=== PATIENT | female | born 1990 | race Caucasian/White ===

== ENCOUNTER 2019-07-01 11:04 | Emergency (ER) | payer OTHER ==
[~2019-07-01] VITALS: Ht 152.4 cm; Wt 48.5 kg
[~2019-07-01 11:04] MED LIST: FIORICET 50-301 EACH PO; FLINTSTONES COM18 MG PO; FLINTSTONES1 EAC1 PO; MOTRIN600 MG PO; PROCARDIA XL30 MG PO; TYLENOL325 MG PO
[2019-07-01] MEDS ORDERED: LABETALOL HCL100 MG PO (12:00)
== END 2019-07-01 12:10 | disposition home or self-care (01) ==
LOC: ED 11:04
DX: O16.1 Unspecified maternal hypertension, first trimester (principal); Z3A.01 Less than 8 weeks gestation of pregnancy; O99.331 Smoking (tobacco) complicating pregnancy, first trimester; F17.200 Nicotine dependence, unspecified, uncomplicated; Z88.2 Allergy status to sulfonamides; Z88.1 Allergy status to other antibiotic agents; Z88.8 Allergy status to other drugs, medicaments and biological substances
CPT/HCPCS: 36415; 80053; 85025; 86762; 86780; 86850; 86900; 86901; 87340; 99282

== ENCOUNTER 2019-08-26 15:56 | Emergency (ER) | payer OTHER ==
[~2019-08-26] VITALS: Ht 152.4 cm; Wt 51.0 kg
--- OUTSIDE RECORDS SUMMARY | ~2019-08-26 | XMS | Clinical Summary ---
Demographics + + + | Address | [address] | | | [place] [address] | + + + | Home Phone | | + + + | Preferred Language | Unknown | + + + | Marital Status | Legally | + + + | Confucianism Affiliation | Unknown | + + + | Race | Unknown | + + + | Ethnic Group | Unknown | + + + Author + + + | Author | [facility] | | | and [place] | + + + | Organization | [facility] | | | and [place] | + + + | Address | Unknown | + + + | Phone | Unavailable | + + + Support + + +---------+ + | Name | Relationship | Address | Phone | + + +---------+ + | Irene Chavez | ECON | Unknown | | + + +---------+ + Care Team Providers + +------+ + | Care Coiler Name | Role | Phone | + +------+ + | Jenise Fermin CHANNELER | PCP | Unavailable | + +------+ + Allergies No Known Allergies Medications + + + +---------+------+------+-------+ | Medication | Sig | Dispensed | Refills | Star | End | Statu | | | | | | t | Date | s | | | | | | Date | | | + + + +---------+------+------+-------+ | sertraline | Take 50 mg by mouth | | 0 | | | Activ | | (ZOLOFT) 50 mg | Daily. | | | | | e | | tablet | | | | | | | + + + +---------+------+------+-------+ | acetaminophen | Take 325 mg by mouth | | 0 | | | Activ | | (TYLENOL) 325 mg | every 6 hours as | | | | | e | | tablet | needed. | | | | | | + + + +---------+------+------+-------+ | metoprolol | Take 25 mg by mouth | | 0 | | | Activ | | succinate | Daily. | | | | | e | | (TOPROL-XL) 25 mg 24 | | | | | | | | hr tablet | | | | | | | + + + +---------+------+------+-------+ | | Take 1 tablet by | | 0 | | | Activ | | multivitamin tablet | mouth Daily. | | | | | e | + + + +---------+------+------+-------+ | promethazine | Take 25 mg by mouth | | 0 | | | Activ | | (PHENERGAN) 25 mg | every 6 hours as | | | | | e | | tablet | needed. | | | | | | + + + +---------+------+------+-------+ | dicyclomine | Take 20 mg by mouth | | 0 | | | Activ | | (BENTYL) 20 MG | every 6 hours. | | | | | e | | tablet | | | | | | | + + + +---------+------+------+-------+ | | Take 1 tablet by | | 0 | | | Activ | | HYDROcodone-acetamin | mouth every 6 hours | | | | | e | | ophen (NORCO) 5-325 | as needed. | | | | | | | mg per tablet | | | | | | | + + + +---------+------+------+-------+ Active Problems + + + | Problem | Noted Date | + + + | HTN (hypertension) | | + + + | Seizures | | + + + | Depression | | + + + | Headache | | + + + | Abnormal Pap smear | | + + + Family History + +------+--------+ + | Relation | Name | Status | Comments | + +------+--------+ + | Father | | Alive | | + +------+--------+ + | Mother | | Alive | | + +------+--------+ + Social History + +-------+ +--------+------+ | Tobacco Use | Types | Packs/Day | Years | Date | | | | | Used | | + +-------+ +--------+------+ | Current Every Day | | 0.3 | | | | Smoker | | | | | + +-------+ +--------+------+ + +---+---+---+ | Smokeless Tobacco: | | | | | Never Used | | | | + +---+---+---+ + + +---------+ + | Alcohol Use | Drinks/We | oz/Week | Comments | | | ek | | | + + +---------+ + | No | | | | + + +---------+ + + + + | Sex Assigned at | Date Recorded | | | | + + + | Not on file | | + + + + + + + | Job Start Date | Occupation | Industry | + + + + | Not on file | Not on file | Not on file | + + + + + + + + | Travel History | Travel Start | Travel End | + + + + + + | No recent travel history available. | + + Last Filed Vital Signs + + + + | Vital Sign | Reading | Time Taken | + + + + | Blood Pressure | 130/90 | 07/29/2014 1429 PDT | + + + + | Pulse | 70 | 07/29/20141428 PDT | + + + + | Temperature | 36.4 C (97.6 F) | 07/29/20141428 PDT | + + + + | Respiratory Rate | 16 | 07/29/20141428 PDT | + + + + | Oxygen Saturation | 99% | 04/30/2014909 PDT | + + + + | Inhaled Oxygen | - | - | | Concentration | | | + + + + | Weight | 54.4 kg (120 lb) | 07/29/20141428 PDT | + + + + | Height | 154.9 cm (5' 1") | 07/29/20141428 PDT | + + + + | Body Mass Index | 22.67 | 07/29/20141428 PDT | + + + + Plan of Treatment + + + + + | Health Maintenance | Due Date | Last Done | Comments | + + + + + | Vaccine: | | | | | Dtap/Tdap/Td (1 - | 0 | | | | Tdap) | | | | + + + + + | Cervical Cancer | | | | | Screening (Pap) | 2 | | | + + + + + | Vaccine: Influenza | | | | | (#1) | 9 | | | + + + + + Results Not on filefrom Last 3 Months Advance Directives Patient has advance care planning documents on file. For more information, please contact:[facility] [place] [address]
--- OUTSIDE RECORDS SUMMARY | ~2019-08-26 | XMS | Clinical Summary ---
Demographics + + + | Address | [address] | | | [place] [address] | + + + | Home Phone | | + + + | Preferred Language | Unknown | + + + | Marital Status | Legally | + + + | Baptist Affiliation | Unknown | + + + | Race | Unknown | + + + | Ethnic Group | Unknown | + + + Author + + + | Author | [facility] | | | and [place] | + + + | Organization | [facility] | | | and [...] Team Providers + +------+ + | Care Gasket Notcher Name | Role | Phone | + +------+ + | Jenise Fermin GRANITE SANDBLASTER APPRENTICE | PCP | Unavailable | + +------+ [...] documents on file. For more information, please contact:[facility] [place] [address]
--- OUTSIDE RECORDS SUMMARY | ~2019-08-26 | XMS | Clinical Summary ---
Demographics + + + | Address | [address] | | | [place] [address] | + + + | Home Phone | | + + + | Preferred Language | Unknown | + + + | Marital Status | Single | + + + | Restorationism Affiliation | Unknown | + + + | Race | Unknown | + + + | Ethnic Group | Unknown | + + + Author + + + | Author | [facility] (Historical as of | | | 06-20-19) | + + + | Organization | [facility] (Historical as of | | | 06-20-19) | + + + | Address | Unknown | + + + | Phone | Unavailable | + + + Support + + + + + | Name | Relationship | Address | Phone | + + + + + | Irene Maravilla | ECON | [address] | | | | | [place] | | | | | [address] | | + + + + + Care Team Providers + +------+ + | Care Ship'S Electronic Warfare Officer Name | Role | Phone | + +------+ + | Dr. Brian | PP | Unavailable | + +------+ + Allergies Not on File Current Medications Not on file Active Problems Not on file Social History + +-------+ +--------+------+ | Tobacco Use | Types | Packs/Day | Years | Date | | | | | Used | | + +-------+ +--------+------+ | Never Assessed | | | | | + +-------+ +--------+------+ + + + | Sex Assigned at | Date Recorded | | | | + + + | Not on file | | + + + Plan of Treatment Not on file Results Not on filefrom Last 3 Months"
--- OUTSIDE RECORDS SUMMARY | ~2019-08-26 | XMS | Clinical Summary ---
Demographics + + + | Address | [address] | | | [place] [address] | + + + | Home Phone | | + + + | Preferred Language | Unknown | + + + | Marital Status | Single | + + + | Zoroastrianism Affiliation | Unknown | + + + | Race | Unknown | + + + | Ethnic Group | Unknown | + + + Author + + + | Author | [facility] (Historical as of | | | 06-20-19) | + + + | Organization | [facility] (Historical as of | | | 06-20-19) [...] [place] | | | | | [address] | | + + + + + Care Team Providers + +------+ + | Care Classified Ad Clerk Name | Role | Phone | + [...]
[~2019-08-26 15:56] MED LIST changes: +LABETALOL HCL100 MG PO
== END 2019-08-26 18:54 | disposition home or self-care (01) ==
LOC: ED 15:56
DX: O20.9 Hemorrhage in early pregnancy, unspecified (principal); Z3A.13 13 weeks gestation of pregnancy; Z87.891 Personal history of nicotine dependence; Z88.2 Allergy status to sulfonamides; Z88.8 Allergy status to other drugs, medicaments and biological substances; Z88.1 Allergy status to other antibiotic agents; Z79.899 Other long term (current) drug therapy
CPT/HCPCS: 76801; 80048; 81001; 84702; 85025; 86900; 86901; 99284-25

== ENCOUNTER 2020-02-12 07:45 | Inpatient (IN) | payer OTHER ==
--- NOTE | 2020-02-12 14:30 | PR ---
[facility] [address] [facility] [place], [place] [address] Signed Progress Notes IP Datetime Report Generated by CPJovani: 02/12/2020 14:30 PROGRESS NOTES: [id number] Impression: Normal progression of labor Procedures: Artificial ROM Plan: Continue present management; Anticipate Vaginal Delivery VITAL SIGNS: [id number] Vital Signs: Reviewed; Within Normal Limits EXAM: [id number] Dilatation: 2.0 Effacement: 90 Station: -2 Uterine Contractions: every 2-3 minutes MEMBRANES: [id number] Membrane Status: Ruptured Amniotic Fluid Color: Clear ROM Note: AROM with large amount clear fluid Comments: Increased variability with acceleration during examination, attempted FEKG, but unable to attach and patient very uncomfortable, so will continue monitoring with external, will add later if needed Fetus A: [id number] FHR Baseline: 130 Variability: Moderate 6-25bpm Accelerations: 15X15 FHR Category: Category II Presentation: Vertex Fetus B: [id number] Signing Physician: Aditya Dao MD Copies: ~ *Electronically Signed* 02/12/20 1430 ADITYA DAO MD PATIENT NAME: IJEOMALANGHEAVEN PROGRESS NOTE DATE OF : 89 PHYSICIAN: ADITYA DAO MD RPT #: [id number] REPORT IS CONFIDENTIAL AND NOT TO BE RELEASED WITHOUT AUTHORIZATION
--- NOTE | 2020-02-12 17:02 | PR ---
[facility] [address] [facility] [place], [place] [address] Signed Progress Notes IP Datetime Report Generated by CPN: 02/12/2020 17:02 PROGRESS NOTES: [id number] Impression: Slow Progression of Labor Procedures: Scalp Electrode; Epidural Placement Plan: Anticipate Vaginal Delivery VITAL SIGNS: [id number] Vital Signs: Reviewed VS Notable Details: elevated BP EXAM: [id number] Dilatation: 3.0 Effacement: 90 Station: -1 Uterine Contractions: every 2-3 minutes MEMBRANES: [id number] Membrane Status: Ruptured Amniotic Fluid Color: Clear ROM Note: AROM with large amount clear fluid Comments: BP going up, given IV Labetalol x2. Anesthesia here for Epidural now. Will recheck cs and BP after Epidural palcement Fetus A: [id number] FHR Baseline: 130 Variability: Moderate 6-25bpm Accelerations: 15X15 Decelerations: Variable FHR Category: Category II Presentation: Vertex Fetus B: [id number] Signing Physician: Lucas Dao MD Copies: ~ *Electronically Signed* 02/12/20 1702 LUCAS DAO MD PATIENT NAME: HEAVEN REYNA PROGRESS NOTE DATE OF : [birth year] PHYSICIAN: LUCAS DAO MD RPT #: [id number] REPORT IS CONFIDENTIAL AND NOT TO BE RELEASED WITHOUT AUTHORIZATION
--- NOTE | 2020-02-12 18:19 | PR ---
[facility] [address] [place], [place] [address] Signed Progress Notes IP Datetime Report Generated by OK: 02/12/2020 18:19 PROGRESS NOTES: [id number] Impression: Non-reassuring heart rate; Slow Progression of Labor Procedures: Scalp Electrode; Epidural Placement Plan: Deliver- Section Informed Consent Obtain: Section Delivery VITAL SIGNS: [id number] Vital Signs: Reviewed VS Notable Details: elevated BP EXAM: [id number] Dilatation: 3.0 Effacement: 90 Station: -2 Uterine Contractions: every 2-3 minutes MEMBRANES: [id number] Membrane Status: Ruptured Amniotic Fluid Color: Clear ROM Note: AROM with large amount clear fluid Comments: No change for 3.5 hours, continued variable decels, occasional decreased variability. Have tried left side, right side, hands-knees, high Fallors, fluid resuscitation, without improvement. Discussed risks of continuing prfegnancy vs C/S. Discussed C/S; procedure, risks of infection, bleeding, bowel/bladder/ureter, uterine injury, scar tissue post-op, risk of repeat C/S if another . Questiosn answered. Patient agrees to C/S. OR _ Anesthesia called - on way here Fetus A: [id number] FHR Baseline: 130 Variability: Moderate 6-25bpm Accelerations: 15X15 Decelerations: Variable FHR Category: Category II Presentation: Vertex Comments on Fetus A: some decreased variability, rare accelerations Fetus B: [id number] Signing Physician: Aditya Dao MD Copies: *Electronically Signed* 02/12/201818 ADITYA DAO MD PATIENT NAME: HEAVEN REYNA PROGRESS NOTE DATE OF : [birth year] PHYSICIAN: ADITYA DAO MD RPT #: [id number] REPORT IS CONFIDENTIAL AND NOT TO BE RELEASED WITHOUT AUTHORIZATION [address] [place], [place] [address] Signed ~ *Electronically Signed* 02/12/201818 ADITYA DAO MD PATIENT NAME: HEAVEN REYNA PROGRESS NOTE DATE OF : [birth year] PHYSICIAN: ADITYA DAO MD RPT #: [id number] REPORT IS CONFIDENTIAL AND NOT TO BE RELEASED WITHOUT AUTHORIZATION
--- NOTE | 2020-02-12 20:10 | NUR ---
02/12/202009 Love Georges6 PT ARRIVED TO ROOM, VSS. AT BEDSIDE. PT DENIES PAIN AND NAUSEA. 2009 PT EATNG ICE CHIPS PER REQUEST.
--- NOTE | 2020-02-13 09:12 | PR ---
[facility] [address] [facility] [place] [address] Signed PP Progress Notes Datetime Report Generated by CPN: 02/13/2020 09:12 SUBJECTIVE: [id number] Pain: Within normal limits Nausea/Vomiting: Denies Vital Signs: [id number] Vital Signs: Reviewed; Within Normal Limits Notable Details: PP Hgb/Hct = 11.9/36.4 EXAM: [id number] Abdomen/Uterus: Normal Lochia: Normal Extremities: Normal Incision: Normal IMPRESSION/PLAN/PROCEDURES: [id number] Impression: Normal progression Other Impression: Chronic HTN Plan: Continue present management Procedures: None Progress Notes: Doing well, without complaint. Will continue with Labetalol, watch BP Signing Physician: Lucas Dao MD Copies: ~ *Electronically Signed* 02/13/20911 LUCAS DAO MD PATIENT NAME: HEAVEN REYNA PROGRESS NOTE DATE OF : [birth year] PHYSICIAN: LUCAS DAO MD RPT #: [id number] REPORT IS CONFIDENTIAL AND NOT TO BE RELEASED WITHOUT AUTHORIZATION
--- NOTE | 2020-02-13 10:12 | OR ---
[facility] [address] [place], [place] [address] Signed DATE OF OPERATION: 02/12/2020 SURGEON: Aditya Graham MD Patient of Dr. Graham. PREOPERATIVE DIAGNOSES: Nonreassuring heart rate tracing, failure to progress, and chronic hypertension. POSTOPERATIVE DIAGNOSES: Nonreassuring heart rate tracing, failure to progress, and chronic hypertension. PROCEDURE: Primary low transverse segment section, delivery of a live male . ANESTHESIA: Epidural. ESTIMATED BLOOD LOSS: 500 mL. COMPLICATIONS: None. DRAINS: Galvin to bladder. FINDINGS: Live male in LOP presentation with the head tightly wedged in the pelvis at 3 cm. Normal uterus. Normal tubes and ovaries bilaterally. DESCRIPTION OF PROCEDURE: The patient was brought into the operating room, placed in supine position. After adequate epidural anesthesia was obtained, was prepped and draped in usual sterile fashion. The patient already had Galvin catheter in place. A Pfannenstiel skin incision was made with a scalpel and extended through subcutaneous tissue with Bovie. The fascia was nicked with scalpel and extended in transverse fashion using curved scissors. The underlying abdominal musculature was bluntly and sharply from the fascia above and below the incision. The abdominal musculature was bluntly and sharply along the midline. The peritoneum was grasped with hemostats, elevated, nicked with Electronically Signed By: ADITYA GRAHAM MD 02/13/20 1012 PATIENT NAME: HEAVEN REYNA LABREE OPERATIVE REPORT DATE OF : [birth year] REPORT #: [id number] PHYSICIAN: ADITYA GRAHAM MD PCP: ADITYA GRAHAM MD REPORT IS CONFIDENTIAL AND NOT TO BE RELEASED WITHOUT AUTHORIZATION [facility] [address] [place], [place] [address] Signed scissors, and extended in vertical fashion using scissors and blunt dissection. The Morris self-retaining retractor was inserted into the incision and tightened in place. The lower uterine segment was identified. The bladder was noted to be well below the area of dissection. The lower uterine segment was then carefully nicked with scalpel and extended in transverse fashion using finger dissection. A bulging bag of clear fluid came from the incision, that ruptured during finger dissection. The infant was noted to be in the vertex LOP presentation with the head tightly wedged in the pelvis. Attempt was made to lift the head out of the pelvis, but was very tightly in and could not be moved. With the incision opened, a shoulder, arm, and the umbilical cord came out of the incision. Attempt was made to put the arm back in and to J the incision, but the incision was already to the edge of the uterus and the upper portion of the uterus was difficult to see because of the Morris retractor. At this point, it was decided to do manual breech extraction, so a hand was placed in the fundus and 1 foot seen and the leg delivered to the incision. With this leg removed, the infant was slowly rotated to bring the other leg anterior and then with both feet, legs out of the incision, the buttocks were delivered. At this point, the was rotated with the back down and flexed the infant, brought to the buttocks and back anterior, and the infant was delivered caudally rotating the head out of the pelvis, both arms and the head then easily delivered. The cord was doubly clamped and cut and the passed off the table in stable condition to awaiting nurse. Cord gases were obtained. The placenta was easily removed and uterine cavity explored with a lap pad to remove any retained membranes. The incision was examined and noted to extend the whole length of the lower segment. An angle stitch of 0 Monocryl was placed at one end of the incision and running locking stitch of 0 Monocryl starting at the other end used to close the incision. A second running stitch of 0 Monocryl was used to imbricate the first layer. There was small amount of bleeding on the left side. This was controlled with ajdulv-lc-mekmt stitch of 0 Monocryl. There was a slight tear in the midportion of the lower segment, approximately 3 cm long. This was in a vertical fashion. This was closed using running locking stitch of 0 Vicryl suture. The entire pelvis was irrigated, suctioned, and examined. The extension on the left side went towards the round ligament and there was slight bleeding, so fingers were placed behind the broad ligament and 2 tjpohq-ce-zgylr stitches of 0 Vicryl were placed lateral in this area and tied in place. The hand was kept behind there to make sure that the stitch did not go through the back of the broad ligament. After these 2 stitches were tied, good hemostasis was noted. The lower segment was rather raw, but no active bleeding was seen. At this point, the entire pelvis was re-irrigated, suctioned, and examined and appeared to have good hemostasis. Because of the large raw area in the lower segment, after removing the Morris self-retaining retractor, Jose Antonio was sprinkled over the entire area and good hemostasis was noted. A sheet of ACell was then placed over lower uterine segment to help with healing. Then, the anterior wall peritoneum was closed using running stitch of 2-0 Vicryl suture. The abdominal musculature was reapproximated using interrupted stitches of 0 Vicryl suture. The abdominal wall incision was irrigated, Electronically Signed By: ADITYA GRAHAM MD 02/13/20 1012 PATIENT NAME: HEAVEN REYNA OPERATIVE REPORT DATE OF : [birth year] REPORT #: [id number] PHYSICIAN: ADITYA GRAHAM MD PCP: ADITYA GRAHAM MD REPORT IS CONFIDENTIAL AND NOT TO BE RELEASED WITHOUT AUTHORIZATION [facility] [address] [place], [place] [address] Signed suctioned, examined, any bleeding spots were cauterized with the Bovie. Remaining Jose Antonio was sprinkled over the abdominal musculature in the lower segment to further help with healing and then powdered ACell sprinkled over the anterior musculature to help with healing. The fascia was then closed using 2 running stitch of 0 Vicryl suture meeting in the midline. Subcutaneous tissue was irrigated, suctioned, examined, any bleeding spots cauterized with the Bovie. The subcutaneous tissue was then closed using interrupted stitches of 3-0 Vicryl sutures. Skin was reapproximated using skin clips. The patient tolerated the procedure well, went to recovery room in good condition. The sponge, needle, and instrument counts were correct at the end of the procedure. Aditya Graham MD MJB/MODL /[id number] Copies: ~ Electronically Signed By: ADITYA GRAHAM MD 04/11/20 1012 PATIENT NAME: AXELHEAVEN OPERATIVE REPORT DATE OF : [birth year] REPORT #: [id number] PHYSICIAN: ADITYA GRAHAM MD PCP: ADITYA GRAHAM MD REPORT IS CONFIDENTIAL AND NOT TO BE RELEASED WITHOUT AUTHORIZATION
--- NOTE | 2020-02-14 11:12 | PR ---
[facility] [address] [facility] [place] [address] Signed PP Progress Notes Datetime Report Generated by CPN: 02/14/2020 11:11 SUBJECTIVE: [id number] Pain: Within normal limits Nausea/Vomiting: Denies Vital Signs: [id number] Vital Signs: Reviewed; Within Normal Limits Notable Details: PP Hgb/Hct = 11.9/36.4 EXAM: [id number] Abdomen/Uterus: Normal Lochia: Normal Extremities: Normal Incision: Normal IMPRESSION/PLAN/PROCEDURES: [id number] Impression: Normal progression Other Impression: Chronic HTN Plan: Discharge Procedures: None Progress Notes: Doing well, without complaint, ready to go home. Signing Physician: Lucas Dao MD Copies: ~ *Electronically Signed* 02/14/20 1111 LUCAS DAO MD PATIENT NAME: HEAVEN REYNA PROGRESS NOTE DATE OF : [birth year] PHYSICIAN: LUCAS DAO MD RPT #: [id number] REPORT IS CONFIDENTIAL AND NOT TO BE RELEASED WITHOUT AUTHORIZATION
== END 2020-02-14 12:55 | disposition home or self-care (01) | DRG 787 ==
LOC: FBC 07:45
PROVIDERS: ADMIT General Practice
PROC: 10907ZC Drainage of Amniotic Fluid, Therapeutic from Products of Conception, Via Natural or Artificial Opening (ICD-10-PCS; 2020-02-12)
PROC: 00HU33Z Insertion of Infusion Device into Spinal Canal, Percutaneous Approach (ICD-10-PCS; 2020-02-12)
PROC: 3E0R3BZ Introduction of Anesthetic Agent into Spinal Canal, Percutaneous Approach (ICD-10-PCS; 2020-02-12)
PROC: 3E0P7VZ Introduction of Hormone into Female Reproductive, Via Natural or Artificial Opening (ICD-10-PCS; 2020-02-12)
PROC: 10D00Z1 Extraction of Products of Conception, Low, Open Approach (ICD-10-PCS; principal; 2020-02-12 18:40)
DX: O10.92 Unspecified pre-existing hypertension complicating childbirth (principal); O99.324 Drug use complicating childbirth; Z37.0 Single live birth; O76 Abnormality in fetal heart rate and rhythm complicating labor and delivery; O32.4XX0 Maternal care for high head at term, not applicable or unspecified; Z3A.37 37 weeks gestation of pregnancy; O99.334 Smoking (tobacco) complicating childbirth; F17.210 Nicotine dependence, cigarettes, uncomplicated; F12.90 Cannabis use, unspecified, uncomplicated; O99.62 Diseases of the digestive system complicating childbirth; K90.0 Celiac disease; Z86.19 Personal history of other infectious and parasitic diseases; Z79.899 Other long term (current) drug therapy; Z79.82 Long term (current) use of aspirin
CPT/HCPCS: 01961; 36415; 82803; 85027; A9270; J0690; J1100; J2001; J2274; J2370; J2405; J2590; J2795; J7121